=== PATIENT | female | born 1985 | race Caucasian/White ===

== ENCOUNTER 2017-10-06 10:58 | Inpatient (IN) | payer BC ==
[~2017-10-06] VITALS: Ht 154.9 cm; Wt 72.3 kg
[2017-10-06] VITALS (33 sets, daily range): BP systolic 101–139; BP diastolic 54–88; PULSE 48–98; TEMP 97.6–98
[2017-10-06] MEDS ORDERED: PRENATAL1 TA7 PO (11:19)
[2017-10-06] MEDS ORDERED: SYNTHROID0.05 MG/TA PO (11:20)
[2017-10-06 12:23] LABS: BASO % 0.4 % (0.0-2.0); EOS % 0.4 % (0-4.0); GRAN # 6.7 (1.4-6.5); HEMOGLOBIN 11.9 g/dl (12.5-16.0); LYMPH # 1.3 (1.2-3.4); LYMPH % 14.8 % (20.0-51.0); MEAN CELL VOLUME 77 fl (80.0-100.0); MEAN CORPUSCULAR HEMOGLOBIN 26 pg (27.0-31.0); MEAN CORPUSCULAR HGB CONC 34 g/dl (33.0-37.0); MEAN PLATELET VOLUME 11.5 fl (7.4-10.4); MONO # 0.4 (0.1-0.6); MONO % 4.9 % (1.7-9.3); PLATELET COUNT 234 K/mm3 (130-400); RED BLOOD COUNT 4.57 M/mm3 (4.10-5.30); REDCELL DISTRIBUTION WIDTH-CV 15.9 % (11.5-14.5)
[2017-10-06 12:28] LABS: HEMATOCRIT 35.3 % (37.0-47.0)
[2017-10-07 00:55] VITALS: BP 114/78; PULSE 92; TEMP 97.6
[2017-10-07] MEDS ORDERED: PERCOCET 325 MG1 TA2 PO (07:16)
[2017-10-07] MEDS ORDERED: MOTRIN 800800 MG/TAB PO (07:16)
[2017-10-07 08:15] VITALS: BP 113/57; PULSE 70; TEMP 97.2
[2017-10-07 16:40] VITALS: BP 105/70; PULSE 76
[2017-10-07 18:30] VITALS: BP 124/75; PULSE 85
[2017-10-08 08:00] VITALS: BP 127/61; PULSE 69
[2017-10-08] MEDS ORDERED: NEWMANS TOP (08:10)
== END 2017-10-08 10:50 | disposition home or self-care (01) | DRG 775 ==
LOC: LDRO 10:58 → LDR 11:00 → LDRO 11:29 → LDR 11:30 → OB 21:00 → LDRO 10-09 13:28
PROVIDERS: Obstetrics & Gynecology
PROC: 10E0XZZ Delivery of Products of Conception, External Approach (ICD-10-PCS; principal; 2017-10-06)
DX: O70.1 Second degree perineal laceration during delivery (principal); O99.283 Endocrine, nutritional and metabolic diseases complicating pregnancy, third trimester; E03.9 Hypothyroidism, unspecified; Z3A.39 39 weeks gestation of pregnancy; Z37.0 Single live birth
CPT/HCPCS: J2210; J2590; J2795; J7120

== ENCOUNTER 2019-12-13 15:59 | Inpatient (IN) | payer BC ==
[2019-12-13] VITALS (24 sets, daily range): BP systolic 99–162; BP diastolic 46–80; PULSE 51–86; TEMP 98–98.3
[~2019-12-13] VITALS: Ht 154.9 cm; Wt 77.3 kg
[~2019-12-13 15:59] MED LIST: MOTRIN 800800 MG/TAB PO; NEWMANS TOP; PERCOCET 325 MG1 TA2 PO; PRENATAL1 TA7 PO; SYNTHROID0.05 MG/TA PO
--- NOTE | 2019-12-13 16:05 | NUR ---
PATIENT HERE FOR CONTRACTIONS. PATIENT CHANGED INTO GOWN, ON EFM, VITALS OBTAINED, SVE BY JIMMY SOLITARIO. DR ORTIZ CALLED. ZACH LEWIS CALLED, PATIENT DESIRES EPIDURAL IV STARTED BY Jai BALDWIN RN.. PATIENT DENIES BLEEDING AND LEAKING OF FLUID, CONTRACTIONS STARTED AT 0500
[2019-12-13 16:43] LABS: BASO % 0.4 % (0.0-2.0); EOS # 0.1 (0.0-0.7); EOS % 1.1 % (0-4.0); GRAN # 5.9 (1.4-6.5); GRAN % 72.9 % (42.2-75.2); HEMOGLOBIN 11.8 g/dl (12.5-16.0); LYMPH # 1.6 (1.2-3.4); LYMPH % 20.1 % (20.0-51.0); MEAN CELL VOLUME 77 fl (80.0-100.0); MEAN CORPUSCULAR HEMOGLOBIN 25 pg (27.0-31.0); MEAN CORPUSCULAR HGB CONC 33 g/dl (33.0-37.0); MEAN PLATELET VOLUME 10.8 fl (7.4-10.4); MONO # 0.4 (0.1-0.6); MONO % 4.6 % (1.7-9.3); PLATELET COUNT 221 K/mm3 (130-400); RED BLOOD COUNT 4.71 M/mm3 (4.10-5.30); REDCELL DISTRIBUTION WIDTH-CV 14.9 % (11.5-14.5)
[2019-12-13 16:47] LABS: HEMATOCRIT 36.2 % (37.0-47.0)
--- NOTE | 2019-12-13 18:23 | NUR ---
PATIENT REFUSED COVID SWAB
--- NOTE | 2019-12-13 20:46 | NUR ---
2045 DELIVERED VIABLE JAMIE OVER 2 DEGREE LAC WITH 9/9/9 APGARS. REMAINS IN LR4. IV CONTS TO INFUSE.
--- NOTE | 2019-12-13 22:50 | NUR ---
2250 EPID CATH REMOVED AT 2230. IV TO INT. UP TO BR WITH ASSIST. VOIDED LARGE, UNMEASURED AMOUNT. LARGE AMOUNT VAG BLEEDING IN TOILET. PT STOOD UP AND BECAME VERY LIGHT HEADED. SAT BACK DOWN ON TOILET AND BECAME UNRESPONSIVE FOR 10 SECONDS AND THEN WOKE UP. TO 215 PER W/C AND MIRA WELL. INSTRUCTED TO CALL FOR HELP WHEN NEEDS TO GET UP NEXT. ICE TO PERINEUM
[2019-12-14 05:10] VITALS: BP 90/50; PULSE 85; TEMP 98.2
--- NOTE | 2019-12-14 09:04 | NUR ---
Initial visit; Parents thanked Trade Promotion Analyst for offering congratulations and God's blessings for the of their son. Trade Promotion Analyst thanked family for choosing [facility].
[2019-12-14 11:30] VITALS: BP 112/64; PULSE 89; TEMP 98
[2019-12-14 16:57] VITALS: BP 116/54; PULSE 72; TEMP 98.2
[2019-12-14 21:15] VITALS: BP 110/56; PULSE 86; TEMP 98
[2019-12-15] MEDS ORDERED: MOTRIN 800800 MG/TAB PO (05:59)
[2019-12-15 08:10] VITALS: BP 125/81; PULSE 75; TEMP 97.6
== END 2019-12-15 11:05 | disposition home or self-care (01) | DRG 807 ==
LOC: LDRO 15:59 → LDR 16:05 → OB 23:18
PROVIDERS: Obstetrics & Gynecology; ADMIT Obstetrics & Gynecology
PROC: 10E0XZZ Delivery of Products of Conception, External Approach (ICD-10-PCS; principal; 2019-12-13)
PROC: 0KQM0ZZ Repair Perineum Muscle, Open Approach (ICD-10-PCS; 2019-12-13)
DX: O99.72 Diseases of the skin and subcutaneous tissue complicating childbirth (principal); Z37.0 Single live birth; Z3A.39 39 weeks gestation of pregnancy
CPT/HCPCS: J2590; J2795; J7120